=== PATIENT | female | born 1945 | race Caucasian/White ===

== ENCOUNTER → 2020-10-30 18:01 | Outpatient (CLI) | payer MEDICARE ==
[2020-10-30 18:36] LABS: BASOPHILS 0.4 % (0-2); EOSINOPHILS 1.4 % (0-7); HEMATOCRIT 33.4 % (36.0-48.0); HEMOGLOBIN 9.7 g/dL (12-16); IMMATURE GRANULOCYTES 0.2 % (0-5); LYMPHOCYTE ABS# 2.65 10x3/uL (1.18-3.74); LYMPHOCYTES 27.1 % (15-50); MCH 25.8 pg (26.0-34.0); MCV 88.8 fL (80.0-100.0); MEAN PLATELET VOLUME 10.4 fL (7.4-10.4); MONOCYTES 9.6 % (2-11); NEUTROPHIL ABS# 5.98 10x3/uL (1.56-6.13); NEUTROPHILS 61.3 % (40-80); PLATELET COUNT 304 10x3/uL (130-400); RBC 3.76 10x6/uL (4.00-5.40); RDW 18.3 % (11.5-14.5); WBC 9.8 10x3/uL (4.8-10.8)
[2020-10-30 19:12] LABS: ALBUMIN 3.2 g/dL (3.4-5.0); ANION GAP 9.2 mmol/L (8-16); BILIRUBIN - TOTAL 0.25 mg/dL (0.2-1.3); CALCIUM 8.8 mg/dL (8.5-10.1); CARBON DIOXIDE 36.1 mmol/L (21.0-32.0); CREATININE - SERUM 0.8 mg/dL (0.6-1.3); POTASSIUM - SERUM 4.3 mmol/L (3.5-5.1); PROTEIN - SERUM 6.9 g/dL (6.4-8.2)
== END | disposition home or self-care (01) ==
LOC: D.LABREF 18:01
DX: J44.9 Chronic obstructive pulmonary disease, unspecified (principal); J84.10 Pulmonary fibrosis, unspecified; J96.10 Chronic respiratory failure, unspecified whether with hypoxia or hypercapnia; D72.829 Elevated white blood cell count, unspecified